=== PATIENT | female | born 1965 | race Hispanic/Latino ===

== ENCOUNTER 2017-10-06 14:06 | Emergency (ER) | payer OTHER ==
[2017-10-06] MEDS ORDERED: ASPIRIN TABLET 325 MG TAB PO ONE (14:15)
[2017-10-06] MEDS ORDERED: cloNIDine HCL 0.1 MG TAB PO ONE (14:19)
[2017-10-06 14:28] VITALS: O2SAT 100
--- NOTE | 2017-10-06 14:39 | RAD ---
EXAM DESCRIPTION: Chest,2 Views CLINICAL HISTORY: 52 years Female, substernal cp 2 weeks COMPARISON: None. IMPRESSION: Heart size and pulmonary vascularity are within normal limits. The thoracic aorta is tortuous. There is no airspace consolidation, pleural effusion, or pneumothorax. No acute osseous abnormality. Metallic density projecting over the base of the neck, likely incompletely imaged cervical spine hardware. Electronically signed by: Basil Bond MD 10/06/2017 2:38 PM [employer] [employer]
[2017-10-06] MEDS ORDERED: SUCRALFATE 1 GM/10 ML 1 GM UD PO ONE (15:25)
[2017-10-06] MEDS ORDERED: ALUMINUM & MAGNESIUM HYDROXIDE 30 ML UD PO ONE (15:25)
[2017-10-06] MEDS ORDERED: SPIRONOLACTONE 25 MG TAB PO ONE (16:04)
[2017-10-06] MEDS ORDERED: amLODIPine BESYLATE 5 MG TAB PO ONE (16:04)
[2017-10-06] MEDS ORDERED: ALPRAZolam 0.25 MG TAB PO ONE (16:05)
[2017-10-06] MEDS ORDERED: cloNIDine HCL 0.1 MG TAB ONE (16:43)
[2017-10-06] MEDS ORDERED: ASPIRIN TABLET 325 MG TAB ONE (16:43)
[2017-10-06] MEDS ORDERED: ALUMINUM & MAGNESIUM HYDROXIDE 30 ML UD ONE (16:47)
[2017-10-06] MEDS ORDERED: SUCRALFATE 1 GM/10 ML 1 GM UD ONE (16:47)
--- NOTE | 2017-10-06 17:31 | ED.PDOC ---
History of Present Illness - General Chief Complaint: Blood Pressure Problem Stated Complaint: elevated BP Time Seen by Provider: 10/06/17 14:08 Source: patient Exam Limitations: no limitations - History of Present Illness Initial Comments: The patient is a 52-year-old female presenting to the emergency room secondary to epigastric and substernal chest pain that has been progressive over the last month or 2. She is not having any palpitations. She has been having an acid taste in the back of her mouth. Discomfort is not any worse with activity and it does wake her up at night. She is not feeling short of breath. No palpitations. No syncope or near syncope. She does have a markedly elevated blood pressure and only takes lisinopril. She has not checked her blood pressure with any frequency but reports that it does remain high normally up in the 180s to 190s at least. Timing/Duration: unsure Severity: moderate Improving Factors: nothing Worsening Factors: nothing Associated Symptoms: chest pain, nausea/vomiting Allergies/Adverse Reactions: Allergies NO KNOWN ALLERGY Allergy (Verified 10/06/17 14:21) Home Medications: Ambulatory Orders Amlodipine Besylate 10 mg PO DAILY #30 tab 10/06/17 Esomeprazole Magnesium [Nexium] 40 mg PO DAILY #30 cap 10/06/17 Gemfibrozil 10/06/17 Lisinopril 10/06/17 Nature-Throid 10/06/17 Spironolactone 25 mg PO DAILY #30 tab 10/06/17 Sucralfate Tab [Carafate Tab] 1 gm PO QID #120 tab 10/06/17 Review of Systems - Review of Systems Constitutional: States: no symptoms reported EENTM: States: no symptoms reported Respiratory: States: no symptoms reported Cardiology: States: chest pain Gastrointestinal/Abdominal: States: abdominal pain, nausea Genitourinary: States: no symptoms reported Musculoskeletal: States: no symptoms reported Skin: States: no symptoms reported Neurological: States: no symptoms reported Endocrine: States: no symptoms reported All other Systems: No Change from Baseline Past Medical History (General) - Patient Medical History Hx Stroke: No Hx Congestive Heart Failure: No Hx Hypertension: Yes Hx Thyroid Disease: Yes Hx Diabetes: No Hx MRSA: No Surgical History: no surgical history - Vaccination History Hx Influenza Vaccination: No Hx Pneumococcal Vaccination: No - Social History Hx Tobacco Use: Yes Hx Depression: - Takes medicine Family Medical History - Family History Mother Hx Family Hypertension: Yes Physical Exam - Physical Exam General Appearance: Alert, Comfortable, No apparent distress Eye Exam: bilateral normal Ears, Nose, Throat: hearing grossly normal, normal ENT inspection, normal pharynx Neck: full range of motion, supple, normal inspection Respiratory: lungs clear, normal breath sounds, no respiratory distress, no accessory muscle use Cardiovascular/Chest: normal peripheral pulses, regular rate, rhythm, no edema Peripheral Pulses: radial,right: 2+, radial,left: 2+, dorsalis pedis,right: 2+, dorsalis pedis,left: 2+ Gastrointestinal/Abdominal: non tender, soft Rectal Exam: deferred Back Exam: normal inspection, no CVA tenderness, no vertebral tenderness Extremity: normal range of motion, non-tender, normal inspection, no pedal edema Neurologic: customer program specialist II-XII nml as tested, alert, normal mood/affect, oriented x 3 Skin Exam: normal color Comments: Vital Signs - 24 hr 10/06/17 14:22 Temperature 98.3 F Pulse Rate [ 84 Left Radial] Respiratory 20 Rate Blood Pressure 196/106 [Left Arm] O2 Sat by Pulse 100 Oximetry Progress - Progress Progress: 10/06/17 17:31 the patient's a 52-year-old female presenting to emergency room secondary to what appears to be significant esophagitis as well as uncontrolled hypertension long-term. The patient has responded very well to the GI medications and the patient will be placed on Carafate 1 g 4 times a day for a month along with Nexium 40 mg daily for the next month. she can keep an use liquid Maalox as needed to help control symptoms. Additionally we will place the patient on 10 mg of Norvasc daily along with 25 mg of spironolactone daily. Her blood pressure did not normalize here today but that was not to goal. Her blood pressure did come down approximately 20% from peak. She is currently symptom- free. cardiac enzymes are negative. EKG and chest x-ray are reassuring. I would recommend that the patient get set up in the coming weeks with an exercise tolerance test given her prior risk factors. Additionally consideration should be given towards performing a renal artery ultrasound given her hypertension. - Results/Orders Results/Orders: 10/06/17 14:15 Telemetry .CONTINUOUS 10/06/17 14:30 EKG STAT Laboratory Results - last 24 hr 10/06/17 10/06/17 10/06/17 14:16 14:28 14:28 WBC 4.7 L RBC 4.20 Hgb 13.7 Hct 39.9 MCV 95.1 MCH 32.7 H MCHC 34.4 RDW 15.0 H Plt Count 185 MPV 7.2 L Absolute Neuts (auto) 3.30 Absolute Lymphs (auto) 0.90 L Absolute Monos (auto) 0.30 Absolute Eos (auto) 0.20 Absolute Basos (auto) 0.00 Neutrophils % 70.2 Lymphocytes % 20.0 Monocytes % 5.7 Eosinophils % 3.7 Basophils % 0.4 PT 10.5 INR 0.930 PTT (SP) 32.2 D-Dimer, Quantitative < 200 Sodium 140 Potassium 3.6 Chloride 105 Carbon Dioxide 26 Anion Gap 12.6 BUN 25 H Creatinine 1.21 BUN/Creatinine Ratio 20.7 H Random Glucose 107 H Serum Osmolality 284.3 Calcium 9.3 Magnesium 1.8 Total Bilirubin 0.4 AST 20 ALT 17 Alkaline Phosphatase 80 Creatine Kinase 56 CK-MB (CK-2) 1.1 CK-MB (CK-2) % Not Reportable Troponin I < 0.02 B-Natriuretic Peptide 26.4 Serum Total Protein 7.8 Albumin 4.1 Globulin 3.7 H Albumin/Globulin Ratio 1.1 Amylase 143 H Lipase 36 TSH 0.76 Serum HCG, Qual Urine Color Urine Appearance Urine pH Ur Specific [place] Urine Protein Urine Glucose (UA) Urine Ketones Urine Blood Urine Nitrite Urine Bilirubin Urine Urobilinogen Ur Leukocyte Esterase Urine RBC Urine WBC Ur Epithelial Cells Amorphous Sediment Urine Bacteria 10/06/17 10/06/17 14:28 15:40 WBC RBC Hgb Hct MCV MCH MCHC RDW Plt Count MPV Absolute Neuts (auto) Absolute Lymphs (auto) Absolute Monos (auto) Absolute Eos (auto) Absolute Basos (auto) Neutrophils % Lymphocytes % Monocytes % Eosinophils % Basophils % PT INR PTT (SP) D-Dimer, Quantitative Sodium Potassium Chloride Carbon Dioxide Anion Gap BUN Creatinine BUN/Creatinine Ratio Random Glucose Serum Osmolality Calcium Magnesium Total Bilirubin AST ALT Alkaline Phosphatase Creatine Kinase CK-MB (CK-2) CK-MB (CK-2) % Troponin I B-Natriuretic Peptide Serum Total Protein Albumin Globulin Albumin/Globulin Ratio Amylase Lipase TSH Serum HCG, Qual Negative Urine Color Yellow Urine Appearance Clear Urine pH 5.5 Ur Specific [place] 1.015 Urine Protein Negative Urine Glucose (UA) Negative Urine Ketones Negative Urine Blood Moderate H Urine Nitrite Negative Urine Bilirubin Negative Urine Urobilinogen 0.2 Ur Leukocyte Esterase Negative Urine RBC 3-5 H Urine WBC 0-1 Ur Epithelial Cells 0-1 Amorphous Sediment 1+ Urine Bacteria Rare EKG shows normal sinus rhythm with a flipped T wave in lead 3 only. There is a questionable very small Q wave in aVL. Normal sinus rhythm otherwise. No other ST segment changes concerning for ischemia. Chest x-ray shows no significant cardiomegaly. No hiatal hernia. No widening of the mediastinum. No other significant abnormality. Departure - Departure Clinical Impression: Hypertension, uncontrolled, Esophagitis Disposition: Discharge to Home or Self Care Departure Forms: ED Discharge - Pt. Copy, Patient Portal Self Enrollment Instructions: DI for High Blood Pressure, DI for Esophagitis Diet: bland diet Activity: increase activity as tolerated Prescriptions: Amlodipine Besylate 10 mg PO DAILY #30 tab Esomeprazole Magnesium [Nexium] 40 mg PO DAILY #30 cap Spironolactone 25 mg PO DAILY #30 tab Sucralfate Tab [Carafate Tab] 1 gm PO QID #120 tab Home Medications: Ambulatory Orders Amlodipine Besylate 10 mg PO DAILY #30 tab 10/06/17 Esomeprazole Magnesium [Nexium] 40 mg PO DAILY #30 cap 10/06/17 Gemfibrozil 10/06/17 Lisinopril 10/06/17 Nature-Throid 10/06/17 Spironolactone 25 mg PO DAILY #30 tab 10/06/17 Sucralfate Tab [Carafate Tab] 1 gm PO QID #120 tab 10/06/17 Additional Instructions: the patient's a 52-year-old female presenting to emergency room secondary to what appears to be significant esophagitis as well as uncontrolled hypertension long-term. The patient has responded very well to the GI medications and the patient will be placed on Carafate 1 g 4 times a day for a month along with Nexium 40 mg daily for the next month. she can keep an use liquid Maalox as needed to help control symptoms. Additionally we will place the patient on 10 mg of Norvasc daily along with 25 mg of spironolactone daily. Her blood pressure did not normalize here today but that was not to goal. Her blood pressure did come down approximately 20% from peak. She is currently symptom- free. cardiac enzymes are negative. EKG and chest x-ray are reassuring. I would recommend that the patient get set up in the coming weeks with an exercise tolerance test given her prior risk factors. Additionally consideration should be given towards performing a renal artery ultrasound given her hypertension. I would also recommend patient hold her gemfibrozil for the next 2-3 weeks. the patient should check her blood pressure couple of times per day and record them when she is resting. These can be taken to her primary care doctor early next week for reevaluation.
[2017-10-06 17:50] VITALS: BP 166/108; TEMP 98
== END 2017-10-06 17:40 | disposition home or self-care (01) ==
LOC: ER 14:06
DX: I10 Essential (primary) hypertension (principal); K20.9 Esophagitis, unspecified; E07.9 Disorder of thyroid, unspecified; Z87.891 Personal history of nicotine dependence